=== PATIENT | male | born 1975 | race Two or more races ===

== ENCOUNTER → 2024-03-31 | Outpatient (CLI) | payer MEDICAID, SELFPAY ==
--- NOTE | 2024-03-31 08:36 | XR_ITS ---
EXAMINATION: Cervical spine, 5 views Technique: Cervical spine AP, AP odontoid, lateral, bilateral obliques, 5 views Exam date and time: March 31, 2024 0843 hours Comparison August 23, 2023 INDICATIONS: Right-sided neck pain post cervical spine surgery beginning 5 years ago FINDINGS: Cervical fusion C4-C5 with anatomic alignment Advanced degenerative disc disease below the fusion site C5-C6, C6-C7 with moderate bilateral neural foraminal stenosis No cervical fracture Intact odontoid IMPRESSION: Advanced degenerative disc disease C5-C6, C6-C7 with moderate bilateral neural foraminal stenosis
== END | disposition home or self-care (01) ==
PROVIDERS: PCP Specialist; Referring Provider Specialist; Visit Provider Specialist
DX: M50.322 Other cervical disc degeneration at C5-C6 level (principal); M48.02 Spinal stenosis, cervical region
CPT/HCPCS: 72050